=== PATIENT | female | born 1945 | race Caucasian/White ===

== ENCOUNTER → 2016-07-29 | Outpatient (CLI) | payer MEDICARE ==
[~2016-07-29] VITALS: Ht 152.4 cm; Wt 69.9 kg
[~2016-07-29] MED LIST: /MOXI40TA PO; ADV250INH INH; ALBU0.084 INH; ALBU0.63 INH; ALBU20IN; BENZ200C PO; COLA100C PO; DOXY150C PO; EFFE150C PO; IBUP200T2 PO; IBUP600T26 PO; LEVO112T PO; LEVO125T3 PO; LIDOCAINE 2% INJ 100 MG/5 ML SDV (FOR ANES.) As Ordered ONE; NS 1,000 ML IV SCH; NYST50SS SS; OMEP40CA2 PO; PERCOCET PO; PRED10TA PO; PRED20TA PO; PROAAER IN; PROPOFOL 200 MG/20 ML VIAL As Ordered ONE; PULM0.5S INH; SIMV20TA2 PO; SING10TA32 PO; SYMB16INH INH; TYLE167L PO; TYLE325T5 PO; VENL50TA2 PO; VENL75CA PO; VIBR100C PO; Z PAK; ZANTTAB PO; ZOCO20TA PO; ZOLO50TA PO; ePHEDrine SULFATE 25 MG/5 ML(5MG/ML) SYRINGE As Ordered ONE
--- NOTE | 2016-07-29 09:15 | ROOR ---
Patient Name: Kelly Smyth Procedure Date: 07/29/2016 8:57 AM Date of : 1945 Age: 71 Room: [facility] Gender: Female Note Status: Finalized Procedure: Colonoscopy to Cecum + Cold Snare Polypectomy + Hemoclips Indications: High risk colon cancer surveillance: Personal history of colonic polyps, Last colonoscopy: 2009 Providers: Nilesh Wilcox MD Referring MD: Gilberto Palacio MD Requesting Provider: Medicines: Monitored Anesthesia Care Complications: No immediate complications. Procedure: Pre-Anesthesia Assessment: - The heart rate, respiratory rate, oxygen saturations, blood pressure, adequacy of pulmonary ventilation, and response to care were monitored throughout the procedure. The Colonoscope was introduced through the anus and advanced to the cecum, identified by appendiceal orifice and ileocecal valve. The colonoscopy was performed without difficulty. The patient tolerated the procedure well. The quality of the bowel preparation was excellent. Findings: The perianal and digital rectal examinations were normal. Non-bleeding internal hemorrhoids were found during retroflexion. The hemorrhoids were small and Grade I (internal hemorrhoids that do not prolapse). Multiple small and large-mouthed diverticula were found in the recto-sigmoid colon, sigmoid colon and descending colon. A medium polyp was found in the mid ascending colon. The polyp was sessile. The polyp was removed with a cold snare. Resection and retrieval were complete. To prevent bleeding after the polypectomy, two hemostatic clips were successfully placed (MR conditional). There was no bleeding at the end of the procedure. The exam was otherwise without abnormality on direct and retroflexion views. Impression: - Non-bleeding internal hemorrhoids. - Diverticulosis in the recto-sigmoid colon, in the sigmoid colon and in the descending colon. - One medium polyp in the mid ascending colon, removed with a cold snare. Resected and retrieved. Clips (MR conditional) were placed. - The examination was otherwise normal on direct and retroflexion views. - The exam was otherwise normal to the cecum. Recommendation: - Patient has a contact number available for emergencies. The signs and symptoms of potential delayed complications were discussed with the patient. Return to normal activities tomorrow. Written discharge instructions were provided to the patient. - High fiber diet. - Discharge patient to home. - Continue present medications. - Await pathology results. - Telephone GI clinic for pathology results in 1 week. - Return to referring physician. - Repeat colonoscopy for surveillance based on pathology results. - The findings and recommendations were discussed with the patient's family. Nilesh Wilcox MD Nilesh Wilcox MD 07/29/2016 9:15:46 AM This report has been signed electronically. Number of Addenda: 0 Note Initiated On: 07/29/2016 8:57 AM Estimated Blood Loss: Estimated blood loss: none.
[2016-07-29 09:30] VITALS: BP 122/67
== END | disposition home or self-care (01) ==
LOC: M OPP 08:42
PROVIDERS: ATTEND Internal Medicine Gastroenterology
DX: Z12.11 Encounter for screening for malignant neoplasm of colon (principal); D12.2 Benign neoplasm of ascending colon; K64.0 First degree hemorrhoids; K57.30 Diverticulosis of large intestine without perforation or abscess without bleeding; Z86.010 Personal history of colon polyps; E78.5 Hyperlipidemia, unspecified; E03.9 Hypothyroidism, unspecified; R12 Heartburn; M19.90 Unspecified osteoarthritis, unspecified site; F32.9 Major depressive disorder, single episode, unspecified; F41.9 Anxiety disorder, unspecified; Z78.0 Asymptomatic menopausal state; J45.909 Unspecified asthma, uncomplicated; R06.83 Snoring; K21.9 Gastro-esophageal reflux disease without esophagitis; Z87.891 Personal history of nicotine dependence; Z91.040 Latex allergy status; Z88.0 Allergy status to penicillin; Z91.018 Allergy to other foods; Z91.048 Other nonmedicinal substance allergy status; Z79.899 Other long term (current) drug therapy; Z80.0 Family history of malignant neoplasm of digestive organs

== ENCOUNTER → 2016-09-06 | Outpatient (CLI) | payer MEDICARE ==
[~2016-09-06] MED LIST changes: -COLA100C PO; +COLA100C3 PO; -LIDOCAINE 2% INJ 100 MG/5 ML SDV (FOR ANES.) As Ordered ONE; -NS 1,000 ML IV SCH; -PROPOFOL 200 MG/20 ML VIAL As Ordered ONE; -ePHEDrine SULFATE 25 MG/5 ML(5MG/ML) SYRINGE As Ordered ONE
--- NOTE | 2016-09-06 14:16 | REP ---
Chest two views HISTORY: Asthma exacerbation Comparison: 03/02/2015 A minimal increase in interstitial markings is present in the lungs. The heart is normal in size. The pulmonary vasculature is normal in appearance. The bony structure is intact. IMPRESSION: There is a minimal increase in interstitial markings in the lungs. This may be secondary to asthma or bronchitis. Signed by Reggie Tenorio MD 09/06/2016 02:07 P
== END ==
LOC: M ADAMS 13:52
PROVIDERS: ATTEND Physician Assistant Medical
DX: J45.901 Unspecified asthma with (acute) exacerbation (principal); J98.4 Other disorders of lung

== ENCOUNTER → 2017-04-08 | Outpatient (REF) | payer MEDICARE ==
[~2017-04-08] MED LIST changes: -COLA100C3 PO; +COLA100C5 PO; +IBUP-1022 PO; -IBUP600T26 PO; -LEVO125T3 PO; +LEVO125T4 PO
[2017-04-08 19:43] LABS: FERRITIN 47 NG/ML (8-252); FREE T4 1.06 NG/DL (0.76-1.46); PERCENT SATURATION 25.5 % (13.2-45.0); TOTAL IRON BINDING CAPACITY 474 UG/DL (250-450)
[2017-04-08 19:48] LABS: VITAMIN B12 LEVEL 693 PG/ML
[2017-04-08 19:49] LABS: FOLATE 19.9 NG/ML
[2017-04-08 19:53] LABS: BASO % 0.6 % (0.0-1.0); EOS # 0.2 10^3/uL (0.0-0.50); EOS % 2.5 % (0.0-3.0); IMMATURE GRANULOCYTE % 0.2 % (0-0); LYMPH # 2.7 10^3/uL (1.5-4.5); LYMPH % 41.4 % (24.0-44.0); MEAN CORPUSCULAR HEMOGLOBIN 32.1 pg (27.0-33.0); MEAN CORPUSCULAR HGB CONC 33.6 g/dl (32.0-36.5); MEAN CORPUSCULAR VOLUME 95.5 fl (80.0-96.0); MONO # 0.3 10^3/uL (0.0-0.8); MONO % 5.2 % (0.0-5.0); NEUTROPHILS # 3.3 10^3/uL (1.8-7.7); NEUTROPHILS % 50.1 % (36.0-66.0); PLATELET COUNT, AUTOMATED 345 10^3/uL (150-450); RED CELL DISTRIBUTION WIDTH 13.2 % (11.5-14.5); WHITE BLOOD COUNT 6.5 10^3/uL (4.0-10.0)
[2017-04-08 21:21] LABS: ERYTHROCYTE SEDIMENTATION RATE 34 mm/hr (0-30)
== END ==
LOC: M SFHCADAM 13:40
PROVIDERS: ATTEND Physician Assistant Medical
DX: R53.82 Chronic fatigue, unspecified (principal); R53.1 Weakness; R51 Headache; F32.9 Major depressive disorder, single episode, unspecified; Z79.82 Long term (current) use of aspirin; Z79.899 Other long term (current) drug therapy

== ENCOUNTER → 2017-05-09 | Outpatient (CLI) | payer MEDICARE | LOC: M ADAMS 13:51 | DX: R05 Cough (principal) | CPT/HCPCS: 71020 ==

== ENCOUNTER 2017-05-29 12:14 | Emergency (ER) | payer BC, MEDICARE ==
[2017-05-29] MEDS: predniSONE 20 MG TAB PO (13:03)
[2017-05-29] MEDS: IPRATROPIUM 0.5MG/ALBUTEROL 2.5MG INH SOL UD 3ML (DUONEB)(J7620) NEB ×2 (13:06→13:11)
[2017-05-29 13:37] LABS: BASO # 0.1 10^3/uL (0.0-0.2); BASO % 0.9 % (0.0-1.0); EOS # 1.6 10^3/uL (0.0-0.50); EOS % 18.2 % (0.0-3.0); HEMATOCRIT 39.2 % (36.0-47.0); HEMOGLOBIN 12.9 g/dl (12.0-16.0); IMMATURE GRANULOCYTE % 0.3 % (0-0); LYMPH # 2.7 10^3/uL (1.5-4.5); LYMPH % 31.4 % (24.0-44.0); MEAN CORPUSCULAR HEMOGLOBIN 31.7 pg (27.0-33.0); MEAN CORPUSCULAR HGB CONC 32.9 g/dl (32.0-36.5); MEAN CORPUSCULAR VOLUME 96.3 fl (80.0-96.0); MONO # 0.6 10^3/uL (0.0-0.8); MONO % 7.2 % (0.0-5.0); NEUTROPHILS # 3.7 10^3/uL (1.8-7.7); PLATELET COUNT, AUTOMATED 286 10^3/uL (150-450); RED BLOOD COUNT 4.07 10^6/uL (4.00-5.40); RED CELL DISTRIBUTION WIDTH 11.8 % (11.5-14.5); WHITE BLOOD COUNT 8.7 10^3/uL (4.0-10.0)
[2017-05-29 13:57] LABS: ANION GAP 5 MEQ/L (8-16); BLOOD UREA NITROGEN 20 MG/DL (7-18); CALCIUM LEVEL 9.3 MG/DL (8.8-10.2); CARBON DIOXIDE LEVEL 30 MEQ/L (21-32); CHLORIDE LEVEL 105 MEQ/L (98-107); CREATININE FOR GFR 0.76 MG/DL (0.55-1.02); GLOMERULAR FILTRATION RATE > 60.0 (>39); GLUCOSE, FASTING 99 MG/DL (83-110); POTASSIUM SERUM 4.2 MEQ/L (3.5-5.1); SODIUM LEVEL 140 MEQ/L (136-145)
[2017-05-29 14:06] LABS: ALBUMIN 3.6 GM/DL (3.2-5.2); ALBUMIN/GLOBULIN RATIO 1.16 (1.00-1.93); ALKALINE PHOSPHATASE 115 U/L (45-117); ALT/SGPT 19 U/L (12-78); AST/SGOT 14 U/L (7-37); BILIRUBIN,DIRECT < 0.1 MG/DL (0.0-0.2); BILIRUBIN,TOTAL 0.3 MG/DL (0.2-1.0); THYROID STIMULATING HORMONE 0.147 uIU/ML (0.358-3.740); TOTAL PROTEIN 6.7 GM/DL (6.4-8.2)
[2017-05-29 14:24] LABS: CK-MB VALUE MASS 1.2 NG/ML (0.0-3.6); CPK CREATINE PHOSPHOKINASE 83 U/L (26-192); MB/CK RELATIVE INDEX 1.44 (< OR =4); TROPONIN I < 0.02 NG/ML (< 0.10)
== END 2017-05-29 14:50 | disposition home or self-care (01) ==
LOC: M ED 12:14
DX: J45.901 Unspecified asthma with (acute) exacerbation (principal); I10 Essential (primary) hypertension; E07.9 Disorder of thyroid, unspecified; Z87.891 Personal history of nicotine dependence; Z88.0 Allergy status to penicillin; Z91.018 Allergy to other foods; Z91.040 Latex allergy status; Z91.048 Other nonmedicinal substance allergy status; Z79.899 Other long term (current) drug therapy; Z79.51 Long term (current) use of inhaled steroids
CPT/HCPCS: 71046

== ENCOUNTER → 2017-08-28 | Outpatient (REF) | payer BC ==
[2017-08-28 13:48] LABS: RHEUMATOID FACTOR QUANT < 10.0 IU/ML (<15.0)
[2017-08-28 13:48] LABS: URIC ACID 3.3 MG/DL (2.6-6.0)
[2017-08-28 13:51] LABS: ERYTHROCYTE SEDIMENTATION RATE 46 mm/hr (0-30)
[2017-08-30 00:08] LABS: ANTINUCLEAR ANTIBODIES DIRECT Negative (Negative); Lyme Disease IgG/IgM Antibodie <0.91 ISR (0.00-0.90); Lyme Disease IgM Ab Quantitati <0.80 index (0.00-0.79)
== END ==
LOC: M LABDRAW1 10:49
DX: M25.561 Pain in right knee (principal)
CPT/HCPCS: 84550

== ENCOUNTER → 2017-10-28 | Outpatient (REF) | payer BC ==
[2017-10-28 12:46] LABS: BASO # 0.1 10^3/uL (0.0-0.2); BASO % 0.8 % (0.0-1.0); EOS # 0.6 10^3/uL (0.0-0.50); EOS % 8.1 % (0.0-3.0); HEMATOCRIT 38.8 % (36.0-47.0); HEMOGLOBIN 13.1 g/dl (12.0-15.5); IMMATURE GRANULOCYTE % 0.1 % (0-3.0); LYMPH # 3.3 10^3/uL (1.5-4.5); LYMPH % 46.7 % (24.0-44.0); MEAN CORPUSCULAR HEMOGLOBIN 31.7 pg (27.0-33.0); MEAN CORPUSCULAR HGB CONC 33.8 g/dl (32.0-36.5); MEAN CORPUSCULAR VOLUME 93.9 fl (80.0-96.0); MONO # 0.5 10^3/uL (0.0-0.8); MONO % 7.3 % (0.0-5.0); NEUTROPHILS # 2.6 10^3/uL (1.8-7.7); PLATELET COUNT, AUTOMATED 299 10^3/uL (150-450); RED BLOOD COUNT 4.13 10^6/uL (4.00-5.40); RED CELL DISTRIBUTION WIDTH 13.1 % (11.5-14.5); WHITE BLOOD COUNT 7.2 10^3/uL (4.0-10.0)
[2017-10-28 13:03] LABS: TOTAL 25(OH) VITAMIN D 44.5 NG/ML (30.0-100.0)
[2017-10-28 16:36] LABS: ALBUMIN 3.7 GM/DL (3.2-5.2); ALBUMIN/GLOBULIN RATIO 1.23 (1.00-1.93); ALKALINE PHOSPHATASE 127 U/L (45-117); ALT/SGPT 23 U/L (12-78); ANION GAP 11 MEQ/L (8-16); AST/SGOT 13 U/L (7-37); BILIRUBIN,TOTAL 0.3 MG/DL (0.2-1.0); BLOOD UREA NITROGEN 18 MG/DL (7-18); CALCIUM LEVEL 9.1 MG/DL (8.8-10.2); CARBON DIOXIDE LEVEL 28 MEQ/L (21-32); CHLORIDE LEVEL 101 MEQ/L (98-107); CHOLESTEROL LEVEL 245 MG/DL (<200); CHOLESTEROL RISK RATIO 4.016 (<5); CREATININE FOR GFR 0.71 MG/DL (0.55-1.30); FREE T4 1.34 NG/DL (0.76-1.46); GLOMERULAR FILTRATION RATE > 60.0 (>39); GLUCOSE, FASTING 79 MG/DL (70-100); HDL CHOLESTEROL 61 MG/DL (>40); LDL CHOLESTEROL 155.6 MG/DL (<100); NON-HDL-C 184 MG/DL; POTASSIUM SERUM 4.3 MEQ/L (3.5-5.1); SODIUM LEVEL 140 MEQ/L (136-145); THYROID STIMULATING HORMONE 0.053 uIU/ML (0.358-3.740); TOTAL PROTEIN 6.7 GM/DL (6.4-8.2); TRIGLYCERIDES LEVEL 142 MG/DL (<150)
== END ==
LOC: M SFHCADAM 08:27
DX: E03.9 Hypothyroidism, unspecified (principal); E66.9 Obesity, unspecified; E55.9 Vitamin D deficiency, unspecified; I10 Essential (primary) hypertension; E78.2 Mixed hyperlipidemia
CPT/HCPCS: 84443

== ENCOUNTER → 2018-03-31 | Outpatient (REF) | payer BC ==
[2018-03-31 16:00] LABS: HEMATOCRIT 40.1 % (36.0-47.0); HEMOGLOBIN 13.3 g/dl (12.0-15.5); MEAN CORPUSCULAR HEMOGLOBIN 31.4 pg (27.0-33.0); MEAN CORPUSCULAR HGB CONC 33.2 g/dl (32.0-36.5); MEAN CORPUSCULAR VOLUME 94.6 fl (80.0-96.0); PLATELET COUNT, AUTOMATED 296 10^3/uL (150-450); RED BLOOD COUNT 4.24 10^6/uL (4.00-5.40); RED CELL DISTRIBUTION WIDTH 12.4 % (11.5-14.5); WHITE BLOOD COUNT 7.7 10^3/uL (4.0-10.0)
[2018-03-31 16:14] LABS: INR 0.94; PROTHROMBIN TIME 12.6 SECONDS (12.1-14.4)
[2018-03-31 16:15] LABS: PARTIAL THROMBOPLASTIN TIME 28.6 SECONDS (25.4-37.6)
[2018-03-31 16:22] LABS: ALBUMIN/GLOBULIN RATIO 1.33 (1.00-1.93); ALKALINE PHOSPHATASE 116 U/L (45-117); ALT/SGPT 33 U/L (12-78); ANION GAP 7 MEQ/L (8-16); AST/SGOT 18 U/L (7-37); BILIRUBIN,TOTAL 0.3 MG/DL (0.2-1.0); BLOOD UREA NITROGEN 20 MG/DL (7-18); CALCIUM LEVEL 9.5 MG/DL (8.8-10.2); CARBON DIOXIDE LEVEL 29 MEQ/L (21-32); CHLORIDE LEVEL 100 MEQ/L (98-107); CREATININE FOR GFR 0.81 MG/DL (0.55-1.30); GLOMERULAR FILTRATION RATE > 60.0 (>39); GLUCOSE, FASTING 78 MG/DL (70-100); POTASSIUM SERUM 4.4 MEQ/L (3.5-5.1); SODIUM LEVEL 136 MEQ/L (136-145)
== END ==
LOC: M SFHCADAM 14:33
DX: Z01.818 Encounter for other preprocedural examination (principal); M48.062 Spinal stenosis, lumbar region with neurogenic claudication
CPT/HCPCS: 80053

== ENCOUNTER → 2018-03-31 | Outpatient (CLI) | payer BC | LOC: M ADAMS 14:41 | DX: Z01.818 Encounter for other preprocedural examination (principal) | CPT/HCPCS: 71046 ==

== ENCOUNTER → 2018-04-12 | Outpatient (REF) | payer BC ==
[2018-04-18 00:11] LABS: URINE ANABASINE None Detected (.); URINE COTININE LEVEL None Detected (.); URINE NICOTINE LEVEL None Detected (.)
== END ==
LOC: M LAB REF 12:37
DX: Z01.818 Encounter for other preprocedural examination (principal); F17.200 Nicotine dependence, unspecified, uncomplicated
CPT/HCPCS: G0480

== ENCOUNTER → 2018-09-25 | Outpatient (REF) | payer BC ==
[~2018-09-25] MED LIST changes: -/MOXI40TA PO; +ALBU83IN; +AVEL1TAB2 PO; +AVEL1TAB3 PO; -EFFE150C PO; +EFFE150C2 PO; +IPRA2IN; +MONT10TA2; +PRED-351 PO; -PRED10TA PO
[2018-09-25 14:23] LABS: FREE T4 1.3 NG/DL (0.76-1.46); THYROID STIMULATING HORMONE 1.25 uIU/ML (0.358-3.740)
== END ==
LOC: M SFHCADAM 10:57
PROVIDERS: ATTEND Physician Assistant Medical
DX: E03.9 Hypothyroidism, unspecified (principal)

== ENCOUNTER → 2018-12-07 | Outpatient (REF) | payer BC ==
[~2018-12-07] MED LIST changes: +ZANT150T40 PO; -ZANTTAB PO
[2018-12-07 13:08] LABS: BASO % 0.3 % (0.0-1.0); EOS # 0.3 10^3/uL (0.0-0.50); EOS % 3.5 % (0.0-3.0); HEMATOCRIT 36.9 % (36.0-47.0); LYMPH # 1.8 10^3/uL (1.5-4.5); LYMPH % 18.4 % (24.0-44.0); MEAN CORPUSCULAR HEMOGLOBIN 29.9 pg (27.0-33.0); MEAN CORPUSCULAR HGB CONC 32.5 g/dl (32.0-36.5); MEAN CORPUSCULAR VOLUME 91.8 fl (80.0-96.0); MONO # 0.6 10^3/uL (0.0-0.8); MONO % 5.9 % (0.0-5.0); NEUTROPHILS # 6.8 10^3/uL (1.8-7.7); NEUTROPHILS % 71.5 % (36.0-66.0); PLATELET COUNT, AUTOMATED 272 10^3/uL (150-450); RED BLOOD COUNT 4.02 10^6/uL (4.00-5.40); WHITE BLOOD COUNT 9.5 10^3/uL (4.0-10.0)
[2018-12-07 13:13] LABS: ALBUMIN 3.1 GM/DL (3.2-5.2); ALT/SGPT 21 U/L (12-78); BILIRUBIN,TOTAL 0.5 MG/DL (0.2-1.0); BLOOD UREA NITROGEN 13 MG/DL (7-18); CALCIUM LEVEL 8.8 MG/DL (8.8-10.2); CARBON DIOXIDE LEVEL 28 MEQ/L (21-32); CHLORIDE LEVEL 96 MEQ/L (98-107); CHOLESTEROL LEVEL 256 MG/DL (<200); GLOMERULAR FILTRATION RATE > 60.0 (>39); GLUCOSE, FASTING 139 MG/DL (70-100); HDL CHOLESTEROL 69 MG/DL (>40); LDL CHOLESTEROL 156 MG/DL (<100); NON-HDL-C 187 MG/DL; POTASSIUM SERUM 3.9 MEQ/L (3.5-5.1); SODIUM LEVEL 133 MEQ/L (136-145); TOTAL 25(OH) VITAMIN D 48.6 NG/ML (30.0-100.0); TOTAL PROTEIN 6.4 GM/DL (6.4-8.2); TRIGLYCERIDES LEVEL 155 MG/DL (<150)
== END ==
LOC: M SFHCADAM 09:20
PROVIDERS: ATTEND Physician Assistant Medical
DX: E03.9 Hypothyroidism, unspecified (principal); F32.9 Major depressive disorder, single episode, unspecified; E78.2 Mixed hyperlipidemia; I10 Essential (primary) hypertension; E55.9 Vitamin D deficiency, unspecified

== ENCOUNTER → 2018-12-16 | Outpatient (REF) | payer BC | LOC: M SFHCPLAZ 09:51 | PROVIDERS: ATTEND Dermatology | DX: R21 Rash and other nonspecific skin eruption (principal) ==

== ENCOUNTER → 2018-12-28 | Outpatient (REF) | payer BC | LOC: M SFHCADAM 08:17 | PROVIDERS: ATTEND Physician Assistant Medical | DX: E03.9 Hypothyroidism, unspecified (principal) ==

== ENCOUNTER 2019-01-20 12:00 | Emergency (ER) | payer MEDICARE ==
[~2019-01-20] VITALS: Ht 152.4 cm; Wt 73.0 kg
[~2019-01-20 12:00] MED LIST changes: +OMEP40CA97 PO
[2019-01-20] MEDS ORDERED: PRIL20TA2 PO (12:15)
[2019-01-20] MEDS ORDERED: IPRATROPIUM 0.5MG/ALBUTEROL 2.5MG INH SOL UD 3ML (DUONEB)(J7620) NEB ONE (14:00)
[2019-01-20] MEDS ORDERED: IPRA0.00 NEB (14:24)
--- NOTE | 2019-01-20 14:25 | REP ---
CHEST, TWO VIEWS: COMPARISON: 03/31/2018 Two views of the chest are performed. There is no acute infiltrate. Heart is normal in size. Metallic rods and screws are seen in the lumbar spine. IMPRESSION: No acute pulmonary disease. Electronically Signed by Archie Bah MD 01/21/2019 09:34 A
[2019-01-20 14:34] VITALS: BP 163/77
== END 2019-01-20 14:30 | disposition home or self-care (01) ==
LOC: M ED 12:00
DX: J44.1 Chronic obstructive pulmonary disease with (acute) exacerbation (principal); F17.210 Nicotine dependence, cigarettes, uncomplicated; Z91.040 Latex allergy status; Z88.0 Allergy status to penicillin; Z91.010 Allergy to peanuts; Z91.018 Allergy to other foods

== ENCOUNTER → 2019-03-04 | Outpatient (CLI) | payer MEDICARE ==
[~2019-03-04] MED LIST changes: +IPRA0.00 NEB; +PRIL20TA2 PO
--- NOTE | 2019-03-04 15:39 | REPMRS ---
Patient History The patient states she has not had a clinical breast exam in over a year. No known family history of cancer. 3D TOMOSYNTHESIS WAS PERFORMED. [facility] lifetime risk for breast cancer is 2.6%. Digital Woman Screen Mammo: March 04, 2019 - Exam #: [id number] Bilateral CC and MLO view(s) were taken. Technologist: Anu Adkins, Technologist Prior study comparison: August 01, 2014, digital woman screen mammo performed at [facility]. August 23, 2008, bilateral digital mammo screening bilat performed at [facility]. FINDINGS: The breast tissue is heterogeneously dense. This may lower the sensitivity of mammography. There has been no change in the appearance of the mammogram from the prior studies. There is a moderate amount of residual fibroglandular tissue which is fairly symmetric. There is no interval development of dominant mass, areas of architectural distortion, or clustered microcalcification typical of malignancy. Assessment: BI-RADS/ACR category 1 mammogram. Negative Mammogram. Recommendation Routine screening mammogram in 1 year (for women over age 40). This mammogram was interpreted with the aid of an FDA-approved computer-aided dectection system. Electronically Signed By: Archie Bah MD 03/04/19 [id number]
--- NOTE | 2019-03-09 15:14 | DEXA ---
AP SPINE L1 - L4 LT FEMUR TOTAL 0.742 -2.1 -0.4 LT NECK 0.708 -2.4 -0.5 RT FEMUR TOTAL 0.764 -1.9 -0.2 RT NECK 0.693 -2.5 -0.6 TOTAL BODY TOTAL OTHER COMMENTS: There is low bone density of the hips. The decreased density of the left hip does represent a significant change. The decreased density of the right hip does represent a significant change. The density of the left hip has decreased 21.4% since the initial exam on 08/05/2001. The density of the left hip has decreased 10.0% since the most recent exam on 08/01/2014. The density of the right hip has decreased 18.1% since the initial exam on 08/05/2001. The density of the right hip has decreased 4.3% since the most recent exam on 08/01/2014 FOLLOW-UP: Recommendation for the next bone density exam: 2 years. LATRICIA
== END ==
LOC: M WHC 13:53
PROVIDERS: ATTEND Physician Assistant Medical
DX: Z12.31 Encounter for screening mammogram for malignant neoplasm of breast (principal); M85.9 Disorder of bone density and structure, unspecified; Z78.0 Asymptomatic menopausal state

== ENCOUNTER → 2019-05-31 | Outpatient (REF) | payer BC ==
[2019-05-31 14:14] LABS: ALBUMIN 3.7 GM/DL (3.2-5.2); ALT/SGPT 19 U/L (12-78); BILIRUBIN,TOTAL 0.3 MG/DL (0.2-1.0); BLOOD UREA NITROGEN 17 MG/DL (7-18); CALCIUM LEVEL 9.3 MG/DL (8.8-10.2); CARBON DIOXIDE LEVEL 26 MEQ/L (21-32); CHLORIDE LEVEL 98 MEQ/L (98-107); CHOLESTEROL LEVEL 285 MG/DL (<200); CREATININE FOR GFR 0.79 MG/DL (0.55-1.30); FREE T4 1.24 NG/DL (0.76-1.46); GLOMERULAR FILTRATION RATE > 60.0 (>39); GLUCOSE, FASTING 86 MG/DL (70-100); HDL CHOLESTEROL 59 MG/DL (>40); LDL CHOLESTEROL 204 MG/DL (<100); NON-HDL-C 226 MG/DL; POTASSIUM SERUM 4.5 MEQ/L (3.5-5.1); SODIUM LEVEL 133 MEQ/L (136-145); TOTAL PROTEIN 6.7 GM/DL (6.4-8.2); TRIGLYCERIDES LEVEL 111 MG/DL (<150)
== END ==
LOC: M SFHCADAM 08:25
PROVIDERS: ATTEND Physician Assistant Medical
DX: I10 Essential (primary) hypertension (principal); F32.9 Major depressive disorder, single episode, unspecified; E03.9 Hypothyroidism, unspecified; E78.2 Mixed hyperlipidemia

== ENCOUNTER → 2021-03-05 | Outpatient (REF) | payer BC, MEDICARE ==
[~2021-03-05] MED LIST changes: +MONT10TA10; -MONT10TA2; +OMEP40CA4 PO; -OMEP40CA97 PO
[2021-03-05 17:10] LABS: BASO # 0.1 10^3/uL (0.0-0.2); BASO % 0.7 % (0.0-1.0); EOS # 0.5 10^3/uL (0.0-0.5); EOS % 6.3 % (0.0-3.0); HEMATOCRIT 41.5 % (36.0-47.0); HEMOGLOBIN 13.6 g/dl (12.0-15.5); LYMPH # 3.4 10^3/uL (1.5-5.0); LYMPH % 41.4 % (24.0-44.0); MEAN CORPUSCULAR HEMOGLOBIN 31.4 pg (27.0-33.0); MEAN CORPUSCULAR HGB CONC 32.8 g/dl (32.0-36.5); MEAN CORPUSCULAR VOLUME 95.8 fl (80.0-96.0); MONO # 0.5 10^3/uL (0.0-0.8); MONO % 5.7 % (2.0-8.0); NEUTROPHILS # 3.7 10^3/uL (1.5-8.5); NEUTROPHILS % 45.7 % (36.0-66.0); PLATELET COUNT, AUTOMATED 309 10^3/uL (150-450); RED BLOOD COUNT 4.33 10^6/uL (4.00-5.40); WHITE BLOOD COUNT 8.2 10^3/uL (4.0-10.0)
[2021-03-05 17:20] LABS: APPEARANCE, URINE CLOUDY (CLEAR); BACTERIA, URINE AUTO NEGATIVE (NEGATIVE); BILIRUBIN, URINE AUTO NEGATIVE (NEGATIVE); BLOOD, URINE BLOOD NEGATIVE (NEGATIVE); COLOR, URINE AMBER (YELLOW); GLUCOSE, URINE (UA) AUTO NEGATIVE (NEGATIVE); KETONE, URINE AUTO NEGATIVE (NEGATIVE); LEUKOCYTE ESTERASE, URINE AUTO 3+ (NEGATIVE); MUCUS, URINE SMALL (NEGATIVE); NITRITE, URINE AUTO NEGATIVE (NEGATIVE); PROTEIN, URINE AUTO 2+ mg/dL (NEGATIVE); RBC, URINE AUTO 10 /HPF (0-3); SPECIFIC GRAVITY URINE AUTO 1.021 (1.002-1.035); SQUAMOUS EPITHELIAL CELL UR AU 2 /HPF (0-6); UROBILINOGEN, URINE AUTO 0.2 mg/dL (0.0-2.0); WBC, URINE AUTO TNTC /HPF (0-3)
[2021-03-05 18:15] LABS: ALBUMIN 3.9 GM/DL (3.2-5.2); ALT/SGPT 26 U/L (12-78); BILIRUBIN,TOTAL 0.3 MG/DL (0.2-1.0); BLOOD UREA NITROGEN 17 MG/DL (7-18); CALCIUM LEVEL 9.6 MG/DL (8.8-10.2); CARBON DIOXIDE LEVEL 27 MEQ/L (21-32); CHLORIDE LEVEL 103 MEQ/L (98-107); CHOLESTEROL LEVEL 280 MG/DL (<200); CHOLESTEROL RISK RATIO 4.242 (<5); CREATININE FOR GFR 0.78 MG/DL (0.55-1.30); GLOMERULAR FILTRATION RATE > 60.0 (>39); GLUCOSE, FASTING 86 MG/DL (70-100); HDL CHOLESTEROL 66 MG/DL (>40); LDL CHOLESTEROL 185 MG/DL (<100); NON-HDL-C 214 MG/DL; POTASSIUM SERUM 4.7 MEQ/L (3.5-5.1); SODIUM LEVEL 137 MEQ/L (136-145); THYROID STIMULATING HORMONE 0.611 uIU/ML (0.358-3.740); TOTAL 25(OH) VITAMIN D 54.6 NG/ML (30.0-100.0); TOTAL PROTEIN 7.1 GM/DL (6.4-8.2); TRIGLYCERIDES LEVEL 144 MG/DL (<150)
[2021-03-05 20:55] LABS: HEMOGLOBIN A1c 5.9 %
== END ==
LOC: M SFHCADAM 11:54
PROVIDERS: ATTEND Physician Assistant Medical
DX: E78.2 Mixed hyperlipidemia (principal); R35.0 Frequency of micturition; I10 Essential (primary) hypertension; N30.00 Acute cystitis without hematuria; Z79.899 Other long term (current) drug therapy

== ENCOUNTER → 2021-03-20 | Outpatient (REF) | payer MEDICARE, BC | LOC: M SFHCPLAZ 13:13 | PROVIDERS: ATTEND Physician Assistant | DX: R05.9 Cough, unspecified (principal) ==

== ENCOUNTER → 2021-03-20 | Outpatient (CLI) | payer MEDICARE, BC ==
--- NOTE | 2021-03-20 12:05 | REP ---
INDICATION: COUGH. COMPARISON: 01/20/2019, 03/31/2018. TECHNIQUE: PA and lateral views FINDINGS: Two view show the lungs well inflated without pleural effusion, lateral pleural thickening or pneumothorax or some minor apical pleural scarring right greater than left, stable no lateral pleural thickening. I see no parenchymal lung mass or acute infiltrate. No visible nodules. The heart is not enlarged. The aorta has some calcifications in the arch without gross aneurysm. Bony thorax shows no acute compression deformity or other focal lesion. Patricio rods are seen the upper lumbar spine on either side with pedicle screws. IMPRESSION: 1. No acute cardiopulmonary change. Some minor apical pleuroparenchymal scarring but no effusion, infiltrate, cardiomegaly, edema or other significant abnormality. <Electronically signed by Miguel Angel Smith > 03/20/21 [id number]
== END ==
LOC: M PLAIMG 11:25
PROVIDERS: ATTEND Physician Assistant
DX: R05.9 Cough, unspecified (principal); J45.901 Unspecified asthma with (acute) exacerbation; R50.9 Fever, unspecified

== ENCOUNTER → 2021-03-27 | Outpatient (REF) | payer MEDICARE | LOC: M SFHCPLAZ 16:54 | PROVIDERS: ATTEND Physician Assistant | DX: R05.9 Cough, unspecified (principal) ==

== ENCOUNTER → 2022-02-06 | Outpatient (CLI) | payer BC, MEDICARE ==
[~2022-02-06] MED LIST changes: +ALBU2.5V10 INH; -ALBU83IN; +DOXY150C3 PO; +IBUP200C89 PO; +IPRA0.00 INH; -MONT10TA10; +MONT10TA97 PO; +SYNT137T7 PO
== END ==
LOC: M LABSMTC 09:24
PROVIDERS: ATTEND Anesthesiology
DX: Z01.812 Encounter for preprocedural laboratory examination (principal); Z20.822 Contact with and (suspected) exposure to COVID-19

== ENCOUNTER → 2022-04-23 | Outpatient (REF) | payer MEDICARE | LOC: M SFHCADAM 15:57 | PROVIDERS: ATTEND Family Medicine | DX: R05.1 Acute cough (principal) ==

== ENCOUNTER → 2023-04-08 | Outpatient (REF) | payer MEDICARE ==
[~2023-04-08] MED LIST changes: -ALBU20IN; +ALBU5SOL7; +MONT-5 PO; +NYST-38 SS; -NYST50SS SS; -SING10TA32 PO
[2023-04-08 17:22] LABS: BASO # 0.1 10^3/uL (0.0-0.2); BASO % 0.9 % (0.0-1.0); EOS # 0.5 10^3/uL (0.0-0.5); EOS % 6.7 % (0.0-3.0); HEMATOCRIT 41.3 % (36.0-47.0); HEMOGLOBIN 13.8 g/dl (12.0-15.5); LYMPH # 3.1 10^3/uL (1.5-5.0); LYMPH % 41.2 % (24.0-44.0); MEAN CORPUSCULAR HEMOGLOBIN 31.9 pg (27.0-33.0); MEAN CORPUSCULAR HGB CONC 33.4 g/dl (32.0-36.5); MEAN CORPUSCULAR VOLUME 95.6 fl (80.0-96.0); MONO # 0.5 10^3/uL (0.0-0.8); MONO % 5.9 % (2.0-8.0); NEUTROPHILS # 3.4 10^3/uL (1.5-8.5); NEUTROPHILS % 45.2 % (36.0-66.0); PLATELET COUNT, AUTOMATED 319 10^3/uL (150-450); RED BLOOD COUNT 4.32 10^6/uL (4.00-5.40); WHITE BLOOD COUNT 7.6 10^3/uL (4.0-10.0)
[2023-04-08 17:56] LABS: ALBUMIN 3.8 G/DL (3.2-5.2); ALKALINE PHOSPHATASE 103 U/L (46-116); ALT/SGPT 19 U/L (7.0-40); AST/SGOT 16 U/L (<34); BILIRUBIN,TOTAL 0.3 MG/DL (0.3-1.2); BLOOD UREA NITROGEN 20 MG/DL (9-23); CALCIUM LEVEL 9.6 MG/DL (8.3-10.6); CARBON DIOXIDE LEVEL 30 MMOL/L (20-31); CHLORIDE LEVEL 102 MMOL/L (98-107); CHOLESTEROL LEVEL 281 MG/DL (<200); CHOLESTEROL RISK RATIO 4.13 (<5); CREATININE FOR GFR 0.78 MG/DL (0.55-1.30); GLOMERULAR FILTRATION RATE > 60.0 (>39); GLUCOSE, FASTING 89 MG/DL (74-106); HDL CHOLESTEROL 67.9 MG/DL (>40); LDL CHOLESTEROL 191.3 MG/DL (<100); NON-HDL-C 213.1 MG/DL; POTASSIUM SERUM 4.5 MMOL/L (3.5-5.1); SODIUM LEVEL 137 MMOL/L (136-145); THYROID STIMULATING HORMONE 0.859 uIU/ML (0.55-4.78); TOTAL 25(OH) VITAMIN D 25.2 NG/ML (20.0-100.0); TOTAL PROTEIN 6.9 G/DL (5.7-8.2); TRIGLYCERIDES LEVEL 109 MG/DL (<150)
== END ==
LOC: M SFHCADAM 14:31
PROVIDERS: ATTEND Physician Assistant Medical
DX: I10 Essential (primary) hypertension (principal); E03.9 Hypothyroidism, unspecified; K59.01 Slow transit constipation; E55.9 Vitamin D deficiency, unspecified; E78.2 Mixed hyperlipidemia

== ENCOUNTER → 2023-09-09 | Outpatient (CLI) | payer MEDICARE ==
[~2023-09-09] MED LIST changes: -DOXY150C3 PO; +DOXY150C5 PO; -EFFE150C2 PO; +EFFE150C3 PO
== END ==
LOC: M PLAIMG 09:24
PROVIDERS: ATTEND Internal Medicine Pulmonary Disease
DX: J45.20 Mild intermittent asthma, uncomplicated (principal)

== ENCOUNTER → 2023-09-18 | Outpatient (REF) | payer MEDICARE ==
[2023-09-18 12:47] LABS: BASO % 0.3 % (0.0-1.0); EOS # 0.1 10^3/uL (0.0-0.5); HEMATOCRIT 38.6 % (36.0-47.0); HEMOGLOBIN 12.9 g/dl (12.0-15.5); LYMPH # 1.2 10^3/uL (1.5-5.0); MEAN CORPUSCULAR HEMOGLOBIN 31.6 pg (27.0-33.0); MEAN CORPUSCULAR HGB CONC 33.4 g/dl (32.0-36.5); MEAN CORPUSCULAR VOLUME 94.6 fl (80.0-96.0); MONO # 0.2 10^3/uL (0.0-0.8); MONO % 1.6 % (2.0-8.0); NEUTROPHILS # 9.6 10^3/uL (1.5-8.5); NEUTROPHILS % 85.7 % (36.0-66.0); PLATELET COUNT, AUTOMATED 307 10^3/uL (150-450); RED BLOOD COUNT 4.08 10^6/uL (4.00-5.40); WHITE BLOOD COUNT 11.2 10^3/uL (4.0-10.0)
[2023-09-18 13:17] LABS: BLOOD UREA NITROGEN 21 MG/DL (9-23); CREATININE FOR GFR 0.73 MG/DL (0.55-1.30); GLOMERULAR FILTRATION RATE > 60.0 (>39)
== END ==
LOC: M LABDRWAD 12:27
PROVIDERS: ATTEND Internal Medicine Pulmonary Disease
DX: R05.9 Cough, unspecified (principal); Z79.899 Other long term (current) drug therapy

== ENCOUNTER → 2023-09-22 | Outpatient (CLI) | payer MEDICARE ==
[~2023-09-22] MED LIST changes: +ISOVUE-370 76% 100ML VIAL ONE
== END ==
LOC: M PLAIMG 09:13
PROVIDERS: ATTEND Internal Medicine Pulmonary Disease
DX: R06.00 Dyspnea, unspecified (principal); I26.99 Other pulmonary embolism without acute cor pulmonale
CPT/HCPCS: 71275; Q9967

== ENCOUNTER → 2023-10-20 | Outpatient (CLI) | payer MEDICARE ==
[~2023-10-20] MED LIST changes: -ISOVUE-370 76% 100ML VIAL ONE
== END ==
LOC: M RAD 15:01
PROVIDERS: ATTEND Physician Assistant Medical
DX: R42 Dizziness and giddiness (principal); R51.9 Headache, unspecified

== ENCOUNTER → 2024-03-29 | Day surgery (SDC) | payer MEDICARE ==
[~2024-03-29] VITALS: Ht 149.9 cm; Wt 69.4 kg
[~2024-03-29] MED LIST changes: +ATROPINE SULFATE 1% OPHTH SOLN 2ML BTL OS SCH; +ELIQ5TAB PO; +FLURBIPROFEN 0.03% OPHTH SOLN 2.5 ML OS SCH; +LIDOCAINE 1% SDV 5ML VIAL As Ordered ONE; +LR 1,000 ML IV SCH; +PHENYLEPHRINE 2.5% OPHTH SOL 2ML OS SCH; +TETRACAINE 0.5% OPHTH SOLN 4ML OS SCH
== END | disposition home or self-care (01) ==
LOC: M SDC 09:48
PROVIDERS: ATTEND Ophthalmology
DX: H25.12 Age-related nuclear cataract, left eye (principal); H25.012 Cortical age-related cataract, left eye; Z53.09 Procedure and treatment not carried out because of other contraindication; R09.89 Other specified symptoms and signs involving the circulatory and respiratory systems; Z79.52 Long term (current) use of systemic steroids

== ENCOUNTER → 2024-04-20 | Outpatient (REF) | payer MEDICARE ==
[~2024-04-20] MED LIST changes: -ADV250INH INH; +ADVA1AER9 INH; -ATROPINE SULFATE 1% OPHTH SOLN 2ML BTL OS SCH; -FLURBIPROFEN 0.03% OPHTH SOLN 2.5 ML OS SCH; -LIDOCAINE 1% SDV 5ML VIAL As Ordered ONE; -LR 1,000 ML IV SCH; -PHENYLEPHRINE 2.5% OPHTH SOL 2ML OS SCH; -TETRACAINE 0.5% OPHTH SOLN 4ML OS SCH
[2024-04-20 14:35] LABS: BASO # 0.1 10^3/uL (0.0-0.2); BASO % 0.7 % (0.0-1.0); EOS # 0.8 10^3/uL (0.0-0.5); EOS % 11.6 % (0.0-3.0); HEMATOCRIT 38.3 % (36.0-47.0); HEMOGLOBIN 12.2 g/dl (12.0-15.5); LYMPH # 1.9 10^3/uL (1.5-5.0); LYMPH % 27.4 % (24.0-44.0); MEAN CORPUSCULAR HEMOGLOBIN 30.5 pg (27.0-33.0); MEAN CORPUSCULAR HGB CONC 31.9 g/dl (32.0-36.5); MEAN CORPUSCULAR VOLUME 95.8 fl (80.0-96.0); MONO # 0.5 10^3/uL (0.0-0.8); MONO % 6.8 % (2.0-8.0); NEUTROPHILS # 3.7 10^3/uL (1.5-8.5); NEUTROPHILS % 53.4 % (36.0-66.0); PLATELET COUNT, AUTOMATED 277 10^3/uL (150-450)
[2024-04-20 14:45] LABS: ALBUMIN 3.3 G/DL (3.2-5.2); ALKALINE PHOSPHATASE 92 U/L (35-104); ALT/SGPT 16 U/L (7.0-40); AST/SGOT 12 U/L (<34); BILIRUBIN,TOTAL 0.5 MG/DL (0.3-1.2); BLOOD UREA NITROGEN 14 MG/DL (9-23); CALCIUM LEVEL 9.8 MG/DL (8.3-10.6); CARBON DIOXIDE LEVEL 30 MMOL/L (20-31); CHLORIDE LEVEL 102 MMOL/L (98-107); CHOLESTEROL LEVEL 284 MG/DL (<200); CHOLESTEROL RISK RATIO 3.93 (<5); CREATININE FOR GFR 0.71 MG/DL (0.55-1.30); GLOMERULAR FILTRATION RATE > 60.0 (>39); GLUCOSE, FASTING 95 MG/DL (74-106); HDL CHOLESTEROL 72.2 MG/DL (>40); LDL CHOLESTEROL 181.2 MG/DL (<100); NON-HDL-C 211.8 MG/DL; POTASSIUM SERUM 5.4 MMOL/L (3.5-5.1); SODIUM LEVEL 138 MMOL/L (136-145); THYROID STIMULATING HORMONE 3.056 uIU/ML (0.55-4.78); TOTAL 25(OH) VITAMIN D 25.2 NG/ML (20.0-100.0); TOTAL PROTEIN 6.4 G/DL (5.7-8.2); TRIGLYCERIDES LEVEL 153 MG/DL (<150)
[2024-04-20 14:48] LABS: FREE T4 1.08 NG/DL (0.89-1.76)
[2024-04-20 15:37] LABS: HEMOGLOBIN A1c 5.8 % (4.0-6.0)
== END ==
LOC: M SFHCADAM 10:36
PROVIDERS: ATTEND Physician Assistant Medical
DX: I10 Essential (primary) hypertension (principal); E03.9 Hypothyroidism, unspecified; E55.9 Vitamin D deficiency, unspecified; E78.2 Mixed hyperlipidemia; Z79.899 Other long term (current) drug therapy

== ENCOUNTER 2024-06-28 08:44 | Day surgery (SDC) | payer MEDICARE ==
[~2024-06-28] VITALS: Ht 152.4 cm; Wt 69.9 kg
[~2024-06-28 08:44] MED LIST changes: +LR 1,000 ML IV SCH; +ROSU5TAB49 PO; +VENL75CA47 PO
[2024-06-28] MEDS: TETRACAINE 0.5% OPHTH SOLN 4ML OS SCH (09:21)
[2024-06-28] MEDS: CYCLOPENTOLATE 1% OPHTH SOLN 2ML BTL OS SCH (09:21)
[2024-06-28] MEDS: FLURBIPROFEN 0.03% OPHTH SOLN 2.5 ML OS SCH (09:21)
[2024-06-28] MEDS: PHENYLEPHRINE 2.5% OPHTH SOL 2ML OS SCH (09:21)
[2024-06-28] MEDS ORDERED: propofoL 200 MG/20 ML VIAL As Ordered ONE (10:33)
[2024-06-28] MEDS ORDERED: LIDOCAINE 2% 100MG/5ML SDV (FOR ANES.) As Ordered ONE (10:33)
[2024-06-28] MEDS: CEFUROXIME 1MG/0.1ML INTRACAMERAL INJ As Ordered ONE (11:37)
[2024-06-28] MEDS: LIDOCAINE 1% SDV 5ML VIAL As Ordered ONE (11:37)
[2024-06-28 11:54] VITALS: BP 164/74; TEMP 98; O2SAT 96
== END 2024-06-28 12:13 | disposition home or self-care (01) ==
LOC: M SDC 08:44
PROVIDERS: ATTEND Ophthalmology
DX: H25.12 Age-related nuclear cataract, left eye (principal); E03.9 Hypothyroidism, unspecified; K57.92 Diverticulitis of intestine, part unspecified, without perforation or abscess without bleeding; K21.9 Gastro-esophageal reflux disease without esophagitis; F17.210 Nicotine dependence, cigarettes, uncomplicated; Z79.51 Long term (current) use of inhaled steroids; Z79.01 Long term (current) use of anticoagulants; Z86.16 Personal history of COVID-19; Z86.711 Personal history of pulmonary embolism; Z86.718 Personal history of other venous thrombosis and embolism; Z91.018 Allergy to other foods; Z88.0 Allergy status to penicillin; Z91.040 Latex allergy status
CPT/HCPCS: 66984; J0697; V2632

== ENCOUNTER 2024-08-30 10:22 | Day surgery (SDC) | payer MEDICARE ==
[~2024-08-30] VITALS: Ht 152.4 cm; Wt 68.9 kg
[~2024-08-30 10:22] MED LIST changes: +ALBU8.5H INH; +PRES1CHW PO
[2024-08-30] MEDS: TETRACAINE 0.5% OPHTH SOLN 4ML OD SCH (11:11)
[2024-08-30] MEDS: FLURBIPROFEN 0.03% OPHTH SOLN 2.5 ML OD SCH (11:11)
[2024-08-30] MEDS: CYCLOPENTOLATE 1% OPHTH SOLN 2ML BTL OD SCH (11:11)
[2024-08-30] MEDS: PHENYLEPHRINE 2.5% OPHTH SOL 2ML OD SCH (11:11)
[2024-08-30] MEDS ORDERED: fentaNYL 100 MCG/2 ML INJECTION As Ordered ONE (11:25)
[2024-08-30] MEDS ORDERED: MIDAZOLAM INJ 2MG/2ML VIAL As Ordered ONE (11:25)
[2024-08-30] MEDS: LIDOCAINE 1% SDV 5ML VIAL As Ordered ONE (12:41)
[2024-08-30] MEDS: CEFUROXIME 1MG/0.1ML INTRACAMERAL INJ As Ordered ONE (12:41)
[2024-08-30 12:57] VITALS: BP 143/78; TEMP 97.7; O2SAT 97
== END 2024-08-30 13:15 | disposition home or self-care (01) ==
LOC: M SDC 10:22
PROVIDERS: ATTEND Ophthalmology
DX: H25.11 Age-related nuclear cataract, right eye (principal); E03.9 Hypothyroidism, unspecified; E78.00 Pure hypercholesterolemia, unspecified; K21.9 Gastro-esophageal reflux disease without esophagitis; J45.909 Unspecified asthma, uncomplicated; Z86.711 Personal history of pulmonary embolism; Z86.718 Personal history of other venous thrombosis and embolism; Z79.899 Other long term (current) drug therapy; Z79.01 Long term (current) use of anticoagulants; Z79.890 Hormone replacement therapy; Z79.51 Long term (current) use of inhaled steroids; Z91.018 Allergy to other foods; Z88.0 Allergy status to penicillin; Z91.048 Other nonmedicinal substance allergy status; Z91.040 Latex allergy status; F17.210 Nicotine dependence, cigarettes, uncomplicated; Z90.49 Acquired absence of other specified parts of digestive tract
CPT/HCPCS: 66984; J0697; J2250; J3010; V2632

== ENCOUNTER 2024-09-01 18:50 | Emergency (ER) | payer MEDICARE ==
[~2024-09-01] VITALS: Ht 152.4 cm; Wt 70.3 kg
[~2024-09-01 18:50] MED LIST changes: -BRIM0.2S13 OS; -PREDOPD OD
[2024-09-01 19:29] LABS: BASO # 0.1 10^3/uL (0.0-0.2); BASO % 0.7 % (0.0-1.0); EOS # 0.5 10^3/uL (0.0-0.5); HEMOGLOBIN 10.6 g/dl (12.0-15.5); LYMPH # 2.3 10^3/uL (1.5-5.0); LYMPH % 32.5 % (24.0-44.0); MEAN CORPUSCULAR HGB CONC 32.1 g/dl (32.0-36.5); MEAN CORPUSCULAR VOLUME 90.4 fl (80.0-96.0); MONO # 0.6 10^3/uL (0.0-0.8); MONO % 8.2 % (2.0-8.0); NEUTROPHILS # 3.6 10^3/uL (1.5-8.5); NEUTROPHILS % 51.5 % (36.0-66.0); PLATELET COUNT, AUTOMATED 276 10^3/uL (150-450); RED BLOOD COUNT 3.65 10^6/uL (4.00-5.40)
[2024-09-01 19:40] LABS: CK-MB VALUE MASS 3.2 NG/ML (<3.6)
[2024-09-01 19:42] LABS: CALCIUM LEVEL 8.8 MG/DL (8.3-10.6); CREATININE FOR GFR 0.71 MG/DL (0.55-1.30); GLOMERULAR FILTRATION RATE 85.9 (>32); POTASSIUM SERUM 4.2 MMOL/L (3.5-5.1)
[2024-09-01 19:44] LABS: MB/CK RELATIVE INDEX 2.58 (< OR =4)
[2024-09-01] MEDS ORDERED: ISOVUE-370 76% 100ML VIAL As Ordered ONE (20:01)
[2024-09-01 21:50] LABS: CK-MB VALUE MASS 2.4 NG/ML (<3.6)
[2024-09-01 22:02] LABS: MB/CK RELATIVE INDEX 2.16 (< OR =4)
[2024-09-01 22:49] VITALS: BP 202/83
[2024-09-01] MEDS: hydrALAZINE 20MG/ML 1ML VIAL IV STA (22:49)
[2024-09-01] MEDS ORDERED: HEPARIN SOD (PORCINE) 5000UNITS/ML 1ML VIAL/SYRINGE IV PRN (23:00)
[2024-09-01] MEDS ORDERED: PREDOPD OD (23:41)
[2024-09-01] MEDS ORDERED: BRIM0.2S13 OS (23:41)
[2024-09-01] MEDS ORDERED: HOME MED LIST COMPLETE! XX SCH (23:45)
[2024-09-02] MEDS: ASPIRIN 325 MG TAB PO ONE (00:34)
[2024-09-02] MEDS: HEPARIN DRIP 25,000 UNITS in IV 1 EA IV SCH (00:46)
[2024-09-02 00:53] LABS: HEMATOCRIT 31.2 % (36.0-47.0); HEMOGLOBIN 10.1 g/dl (12.0-15.5); MEAN CORPUSCULAR HEMOGLOBIN 29.1 pg (27.0-33.0); MEAN CORPUSCULAR HGB CONC 32.4 g/dl (32.0-36.5); MEAN CORPUSCULAR VOLUME 89.9 fl (80.0-96.0); PLATELET COUNT, AUTOMATED 237 10^3/uL (150-450); RED BLOOD COUNT 3.47 10^6/uL (4.00-5.40); WHITE BLOOD COUNT 6.1 10^3/uL (4.0-10.0)
[2024-09-02] MEDS: NITROGLYCERIN 2% OINT 1 GM *U/D* PKT TOP ONE (01:30)
[2024-09-02 06:36] VITALS: BP 183/82; TEMP 96.9; O2SAT 96
== END 2024-09-02 06:47 | disposition short-term general hospital (02) ==
LOC: M ED 18:50
DX: I21.4 Non-ST elevation (NSTEMI) myocardial infarction (principal); I20.0 Unstable angina; I26.99 Other pulmonary embolism without acute cor pulmonale; J43.2 Centrilobular emphysema; I25.84 Coronary atherosclerosis due to calcified coronary lesion; I10 Essential (primary) hypertension; E78.5 Hyperlipidemia, unspecified; J44.9 Chronic obstructive pulmonary disease, unspecified; K21.9 Gastro-esophageal reflux disease without esophagitis; E03.9 Hypothyroidism, unspecified; F17.200 Nicotine dependence, unspecified, uncomplicated; Z79.01 Long term (current) use of anticoagulants; Z88.0 Allergy status to penicillin; Z91.040 Latex allergy status; Z91.018 Allergy to other foods; Z79.52 Long term (current) use of systemic steroids; Z79.899 Other long term (current) drug therapy
CPT/HCPCS: 36415; 71045; 71046; 71275; 80048; 82550; 82553; 82565; 84484; 84520; 85025; 85027; 85730; 87486; 87581; 87633; 87798; 93005; 93041; 94760; 96374; 96375; 99291; J0360; Q9967

== ENCOUNTER → 2024-09-01 | Outpatient (REF) | payer MEDICARE ==
[~2024-09-01] MED LIST changes: +BRIM0.2S13 OS; -LR 1,000 ML IV SCH; +PREDOPD OD
== END ==
LOC: M LAB REF 17:06
PROVIDERS: ATTEND Internal Medicine Pulmonary Disease
DX: I26.99 Other pulmonary embolism without acute cor pulmonale (principal)

== ENCOUNTER → 2024-09-01 | Outpatient (CLI) | payer MEDICARE ==
[2024-09-01 15:06] LABS: BASO # 0.1 10^3/uL (0.0-0.2); BASO % 0.9 % (0.0-1.0); EOS # 0.7 10^3/uL (0.0-0.5); EOS % 7.8 % (0.0-3.0); HEMATOCRIT 34.4 % (36.0-47.0); HEMOGLOBIN 11.1 g/dl (12.0-15.5); LYMPH # 3.7 10^3/uL (1.5-5.0); LYMPH % 41.4 % (24.0-44.0); MEAN CORPUSCULAR HEMOGLOBIN 29.2 pg (27.0-33.0); MEAN CORPUSCULAR HGB CONC 32.3 g/dl (32.0-36.5); MEAN CORPUSCULAR VOLUME 90.5 fl (80.0-96.0); MONO # 0.9 10^3/uL (0.0-0.8); MONO % 9.4 % (2.0-8.0); NEUTROPHILS # 3.7 10^3/uL (1.5-8.5); NEUTROPHILS % 40.4 % (36.0-66.0); PLATELET COUNT, AUTOMATED 311 10^3/uL (150-450)
[2024-09-01 15:36] LABS: CREATININE FOR GFR 0.65 MG/DL (0.55-1.30)
== END ==
LOC: M RAD 13:58
PROVIDERS: ATTEND Internal Medicine Pulmonary Disease
DX: I26.99 Other pulmonary embolism without acute cor pulmonale (principal); R07.89 Other chest pain

== ENCOUNTER → 2024-11-11 | Outpatient (REF) | payer MEDICARE ==
[~2024-11-11] MED LIST changes: +BRIM0.2S13 OS; +PREDOPD OD
== END ==
LOC: M SFHCADAM 12:47
PROVIDERS: ATTEND Physician Assistant Medical
DX: D64.9 Anemia, unspecified (principal)

== ENCOUNTER → 2024-12-09 | Outpatient (CLI) | payer MEDICARE | LOC: M RAD 08:55 | PROVIDERS: ATTEND Physician Assistant Medical | DX: F17.218 Nicotine dependence, cigarettes, with other nicotine-induced disorders (principal); K74.60 Unspecified cirrhosis of liver; K76.0 Fatty (change of) liver, not elsewhere classified; N26.1 Atrophy of kidney (terminal); N28.1 Cyst of kidney, acquired ==

== ENCOUNTER → 2025-03-02 | Outpatient (REF) | payer MEDICARE ==
[~2025-03-02] MED LIST changes: -IBUP-1022 PO; +IBUP600T42 PO
[2025-03-02 18:31] LABS: ALT/SGPT 19 U/L (7.0-40); AST/SGOT 19 U/L (<34)
== END ==
LOC: M LAB REF 17:24
PROVIDERS: ATTEND Internal Medicine Pulmonary Disease
DX: I26.99 Other pulmonary embolism without acute cor pulmonale (principal)

== ENCOUNTER → 2025-03-21 | Outpatient (REF) | payer MEDICARE ==
[2025-03-21 19:01] LABS: PLATELET COUNT, AUTOMATED 300 10^3/uL (150-450)
[2025-03-21 19:19] LABS: ALT/SGPT 23.0 U/L (7.0-40); AST/SGOT 21.0 U/L (<34); CALCIUM LEVEL 9.1 MG/DL (8.3-10.6); CARBON DIOXIDE LEVEL 28.0 MMOL/L (20-31); CHLORIDE LEVEL 103.0 MMOL/L (98-107); CREATININE FOR GFR 0.99 MG/DL (0.55-1.30); GLOMERULAR FILTRATION RATE 57.6 (>32); IRON (FE) 63.0 UG/DL (50-170); PERCENT SATURATION 16.3 % (13.2-45.0); POTASSIUM SERUM 4.4 MMOL/L (3.5-5.1); SODIUM LEVEL 138.0 MMOL/L (136-145)
[2025-03-21 19:20] LABS: FREE T4 1.36 NG/DL (0.89-1.76)
[2025-03-21 19:22] LABS: TOTAL 25(OH) VITAMIN D 38.3 NG/ML (20.0-100.0)
== END ==
LOC: M SFHCADAM 14:21
PROVIDERS: ATTEND Physician Assistant Medical
DX: D64.9 Anemia, unspecified (principal); E55.9 Vitamin D deficiency, unspecified; E78.2 Mixed hyperlipidemia